=== PATIENT | male | born 1950 | race Two or more races ===

== ENCOUNTER 2020-09-02 13:00 | Outpatient (CLI) | payer MEDICARE, MEDICAID ==
--- NOTE | 2020-09-03 16:29 | Consultation ---
DATE OF CONSULTATION: 09/02/2020 GASTROENTEROLOGY CONSULTATION CONSULTING PHYSICIAN: Mario Mari MD. REFERRING PHYSICIAN: . CHIEF COMPLAINT: Referral for endoscopy and colonoscopy. PAST MEDICAL HISTORY: Hypercholesterolemia. PAST SURGICAL HISTORY: Appendectomy and hernia repair. MEDICATIONS: Lipitor. FAMILY HISTORY: No family history of GI malignancies. SOCIAL HISTORY: The patient denies any tobacco, alcohol, or drug abuse. ALLERGIES: No known allergies. REVIEW OF SYSTEMS: A 10-point review of systems was performed and was negative. PHYSICAL EXAMINATION: VITAL SIGNS: Temperature 97.2, blood pressure 133/81, pulse 77, respirations 20. Height is 5 feet 11 inches. Weight is 194. HEENT: Normocephalic and atraumatic. Sclerae are anicteric. NECK: Supple. No evidence of obvious lymphadenopathy. CARDIOVASCULAR: Regular rate and rhythm. Plus S1 and S2. LUNGS: Clear to auscultation bilaterally. ABDOMEN: Positive bowel sounds. Soft and nontender. No rebound. No guarding. No peritoneal sign. EXTREMITIES: No cyanosis, no clubbing, no edema. ASSESSMENT AND PLAN: This is a 70-year-old male with chronic GERD not responding to PPI, needs endoscopy and also needs colonoscopy given his age and never had a colonoscopy before. Plan to do endoscopy and colonoscopy next week. I want to thank Dr. Andrade for this kind referral. Mario Mari M.D. DR: MALAIKA JOB#: [id number] CC: Dr. Andrade
== END 2020-09-02 15:00 | disposition home or self-care (01) ==
LOC: PAN 13:00
DX: K21.9 Gastro-esophageal reflux disease without esophagitis (principal); E78.00 Pure hypercholesterolemia, unspecified; Z90.89 Acquired absence of other organs
CPT/HCPCS: 99203